=== PATIENT | female | born 2000 | race Caucasian/White ===

== ENCOUNTER 2021-03-12 09:45 | Emergency (ER) | payer OTHER ==
[~2021-03-12 09:45] MED LIST: IBUPROFEN600 MG PO
[2021-03-12] MEDS ORDERED: AUGMENTIN 875-1 EACH PO (10:25)
[2021-03-12] MEDS ORDERED: CLEOCIN HCL300 MG PO (10:25)
== END 2021-03-12 10:32 | disposition home or self-care (01) ==
LOC: ER1 09:45
DX: L01.00 Impetigo, unspecified (principal); L03.213 Periorbital cellulitis
CPT/HCPCS: 99282

== ENCOUNTER 2021-05-15 18:45 | Emergency (ER) | payer OTHER ==
[~2021-05-15 18:45] MED LIST changes: +AUGMENTIN 875-1 EACH PO; +CLEOCIN HCL300 MG PO
[2021-05-15 20:30] LABS: HEMOGLOBIN 14.4 gm/dl (12.3-15.3); RED BLOOD COUNT 4.69 M/UL (4.00-5.10); WHITE BLOOD COUNT 8.1 K/UL (4.5-11.0)
[2021-05-15 20:56] LABS: BUN/CREATININE RATIO 17 (0-10)
== END 2021-05-15 22:35 | disposition home or self-care (01) ==
LOC: ER1 18:45
PROVIDERS: Family Medicine
DX: R55 Syncope and collapse (principal)
CPT/HCPCS: 71046; 80053; 80307; 81001; 82550; 82553; 83874; 83880; 84439; 84443; 84484; 85025; 85379; 93005; 99284; J7030